=== PATIENT | male | born 1965 | race Caucasian/White ===

== ENCOUNTER 2019-10-04 10:29 | Emergency (ER) | payer OTHER ==
[~2019-10-04] VITALS: Ht 182.9 cm; Wt 70.3 kg
[~2019-10-04 10:29] MED LIST: ACETAMINOPHEN-1 EAC1 PO; ALEVE220 MG PO; KEFLEX500 MG PO
[2019-10-04] MEDS ORDERED: BACTRIM DS TAB1 EAC1 PO (13:37)
[2019-10-04] MEDS ORDERED: KEFLEX500 M1 PO (13:37)
[2019-10-04] MEDS ORDERED: NORCO 5-325 TA1 EAC1 PO (13:37)
[2019-10-04 14:00] VITALS: BP 123/80
== END 2019-10-04 14:01 | disposition home or self-care (01) ==
LOC: M.ERS 10:29
DX: L03.011 Cellulitis of right finger (principal); R22.31 Localized swelling, mass and lump, right upper limb; Z90.89 Acquired absence of other organs

== ENCOUNTER 2021-02-08 12:04 | Emergency (ER) | payer OTHER ==
[~2021-02-08] VITALS: Ht 182.9 cm; Wt 70.3 kg
[~2021-02-08 12:04] MED LIST changes: +BACTRIM DS TAB1 EAC1 PO; +KEFLEX500 M1 PO; +NORCO 5-325 TA1 EAC1 PO
[2021-02-08 13:02] LABS: INFLUENZA A ANTIGEN Negative (Negative); INFLUENZA B ANTIGEN Negative (Negative)
[2021-02-08] MEDS ORDERED: AUGMENTIN 875-1 EACH PO (13:45)
[2021-02-08] MEDS ORDERED: PROAIR HFA8.5 GM INH (13:45)
[2021-02-08] MEDS ORDERED: PREDNISONE 20 M20 MG PO (13:45)
[2021-02-08 13:56] VITALS: BP 142/100
== END 2021-02-08 13:59 | disposition home or self-care (01) ==
LOC: M.ERS 12:04
PROVIDERS: Nurse Practitioner Family
DX: J40 Bronchitis, not specified as acute or chronic (principal); J32.9 Chronic sinusitis, unspecified; Z20.822 Contact with and (suspected) exposure to COVID-19; F17.210 Nicotine dependence, cigarettes, uncomplicated; Z90.89 Acquired absence of other organs

== ENCOUNTER 2021-12-06 14:53 | Emergency (ER) | payer OTHER ==
[~2021-12-06] VITALS: Ht 182.9 cm; Wt 74.8 kg
[~2021-12-06 14:53] MED LIST changes: +AUGMENTIN 875-1 EACH PO; +PREDNISONE 20 M20 MG PO; +PROAIR HFA8.5 GM INH
[2021-12-06] MEDS ORDERED: AUGMENTIN 500-1 EACH PO (15:48)
[2021-12-06] MEDS ORDERED: APAP W/CODEINE1 TA2 PO (15:48)
[2021-12-06] MEDS ORDERED: MEDROLDOSEPACK PO (15:48)
[2021-12-06 15:56] VITALS: BP 139/86
== END 2021-12-06 15:57 | disposition home or self-care (01) ==
LOC: M.ERS 14:53
DX: J01.90 Acute sinusitis, unspecified (principal); H93.13 Tinnitus, bilateral; Z90.89 Acquired absence of other organs; Z79.2 Long term (current) use of antibiotics; Z79.899 Other long term (current) drug therapy